=== PATIENT | male | born 1975 | race Caucasian/White ===

== ENCOUNTER 2016-02-28 20:42 | Emergency (ER) | payer MEDICAID ==
[~2016-02-28] VITALS: Ht 162.6 cm; Wt 82.0 kg
[2016-02-28 20:47] VITALS: Ht 162.6 cm; Wt 82.0 kg
[2016-02-29] MEDS ORDERED: HYDROCODONE/APAP (5/325) TAB PO ONE
--- NOTE | 2016-02-29 01:55 | RADRPT ---
PROCEDURE: Noncontrast CT Head. CLINICAL INDICATION: Pain. TECHNIQUE: Noncontrast CT of the head was obtained. The administered radiation dose was CTDI vol = 45 mGy, DLP = 720 mGy-cm. COMPARISON: No pertinent prior examinations were submitted for comparison. FINDINGS: The ventricles and sulci are within normal limits. There is no acute intracranial hemorrhage or ext ra-axial fluid collection. There is no mass effect. No midline shift is identified. There is no loss of carter-white differentiation to suggest acute infarction. The orbits are within normal limits. The paranasal sinuses and mastoid air cells are without fluid. No destructive osseous lesion is identified. IMPRESSION: No acute findings. RPTAT: HIKT .Markus Rice MD, MD Date Time Electronically viewed and signed by .Markus Rice MD, on 02/29/2016 01:54 .T/
[2016-02-29] MEDS ORDERED: IBUP-1542 PO (02:03)
[2016-02-29] MEDS ORDERED: HYDR-906 PO (02:03)
--- NOTE | 2016-02-29 02:10 | ERD ---
ER Documentation Chief Complaint Date/Time DATE: 02/29/16 TIME: 02:08 Chief Complaint muir x 1 week HPI This is a 40-year-old male presents to the ER with a headache for the last 2 weeks. Patient states that over the last week his headache has gotten worse. Headache is located in the occipital region and radiates to the right side of his head. Headache is constant and severe is described as a throbbing sensation. He has not tried anything for the pain. He also admits to feeling lightheaded whenever he feels headache. He denies any blurry vision or vision changes. He denies any fevers or chills. He denies any neck pain or neck stiffness. He denies nausea vomiting or diarrhea. He denies any head trauma. He denies any loss of consciousness. Patient denies chest pain or shortness of breath. ROS 12 point review of systems was done, all negative except per HPI. Medications Home Meds Active Scripts Hydrocodone/Acetaminophen ([place]ont 5-325 Tablet) 1 Each Tablet, 1 TAB PO Q6H Y for PAIN, #20 TAB Prov:ELIZA GRAF 02/29/16 Ibuprofen* (Motrin*) 600 Mg Tab, 600 MG PO Q6, #30 TAB Prov:LESIAELIZA C 02/29/16 Allergies Allergies: Coded Allergies: No Known Allergy (Unverified , 08/01/12) PMhx/Soc Medical and Surgical Hx: pt denies Medical Hx, pt denies Surgical Hx Hx Alcohol Use: No Hx Substance Use: No Hx Tobacco Use: No Physical Exam Vitals Vital Signs Date Time Temp Pulse Resp B/P Pulse Ox O2 Delivery O2 Flow Rate FiO2 02/28/16 20:47 97.6 79 20 135/87 98 Physical Exam GENERAL: The patient is well developed and appropriate for usual state of health , in no apparent distress. HEENT: Atraumatic. Conjunctivae are pink. Pupils equal, round, and reactive to light. Extraocular muscles are grossly intact. Bilateral tympanic membranes are clear with no evidence of erythema, bulging or perforation. No sinus tenderness. NECK: C-spine is soft and supple. There is no cervical lymphadenopathy. CHEST: Clear to auscultation bilaterally. There are no rales, wheezes or rhonchi. HEART: Regular rate and rhythm. No murmurs, clicks, rubs or gallops. EXTREMITIES: Equal pulses bilaterally. There is no peripheral clubbing, cyanosis or edema. No focal swelling or erythema. Full range of motion. Grossly neurovascularly intact. NEURO: Alert and oriented. Cranial nerves II through XII are intact. Motor strength in all 4 extremities with 5/5 strength. Sensation grossly intact. Normal speech and gait. Negative Rhomberg. +2 DTRs. SKIN: There is no apparent rash or petechia. The skin is warm and dry. Results 24 hrs Current Medications Medications (Trade) Dose Ordered Sig/Briseyda Route PRN Reason Start Time Stop Time Status Last Admin Dose Admin Acetaminophen/ Hydrocodone Bitart ([place] (5/325)) 1 tab ONCE ONCE PO 02/29/16 00:00 02/29/16 00:01 DC 02/29/16 00:12 Procedures/MDM Differential Diagnosis includes but is not limited to; tension headache, migraine headache, cluster headache, sinus headache, nonspecific febrile headache, trigeminal neurologia, subdural hematoma, subarachnoid bleeding, meningitis, encephalitis. Patient is neurologically intact with no focal neurological deficits. Is likely a migraine headache. Suspicion for acute intracranial pathology is low. Patient is afebrile and well-appearing. I doubt infectious etiology. Patient will be sent home with ibuprofen with Pi[place]ont. Needs to follow-up with his primary care doctor within 1-2 days or return to ER sooner if symptoms worsen. My medical decision making was shared with the patient he understands and agrees with plan. Departure Diagnosis: Primary Impression: Headache Condition: Stable Patient Instructions: Self-Care for Headaches Additional Instructions: Llame al doctor KIM y serina sarah JAIDEN PARA DENTRO DE 1-2 CARDONA.Dgale a la secretaria que nosotros le instruimos hacer esta jaiden.Avise o llame si mendez condicin se empeora antes de la jaiden. Regresa aqui si peor o no mejor. ELIZA GRAF Feb 29, 2016 02:10
[2016-02-29 02:27] VITALS: BP 120/79; PULSE 78; RESP 18; TEMP 98.3
== END 2016-02-29 02:29 | disposition home or self-care (01) ==
LOC: FTE 20:42
DX: R51 Headache (principal)
CPT/HCPCS: 70450; Z7502; Z7610